=== PATIENT | female | born 2000 | race Caucasian/White ===

== ENCOUNTER 2023-03-19 12:18 | Outpatient (CLI) | payer OTHER | END 2023-03-19 12:38 | disposition home or self-care (01) | LOC: RAD 12:18 | DX: R07.9 Chest pain, unspecified (principal); Z13.1 Encounter for screening for diabetes mellitus; Z13.220 Encounter for screening for lipoid disorders; Z11.9 Encounter for screening for infectious and parasitic diseases, unspecified ==

== ENCOUNTER 2023-05-26 11:40 | Outpatient (CLI) | payer OTHER | END 2023-05-26 11:46 | disposition home or self-care (01) | LOC: SONOGRAMA 11:40 | PROVIDERS: ATTEND Specialist | DX: O26.891 Other specified pregnancy related conditions, first trimester (principal); Z3A.10 10 weeks gestation of pregnancy ==

== ENCOUNTER 2023-05-30 05:53 | Day surgery (SDC) | payer OTHER ==
[2023-05-28 14:24] LABS: HEMATOCRIT 37.7 % (36.0-45.00); HEMOGLOBIN 12.9 g/dL (12.0-15.00); MEAN CELL VOLUME 82.9 fL (80.00-100.00); MEAN CORPUSCULAR HEMOGLOBIN 28.4 pg (27.00-32.0); MEAN CORPUSCULAR HGB CONC 34.3 g/dl (32.0-36.0); PLATELET COUNT 296 K/uL (150-450); RED BLOOD COUNT 4.54 M/uL (4.00-6.00); RED CELL DISTRIBUTION WIDTH 15.3 % (11.5-14.5)
[2023-05-28 14:52] LABS: PH,URINE 6.5 (5.0-8.0); URINE APPEARANCE Clear; URINE BILIRRUBIN Negative (NEGATIVE); URINE BLOOD Negative; URINE COLOR Yellow; URINE GLUCOSE Negative (NEGATIVE); URINE LEUKOCYTE Small; URINE NITRATE Negative; URINE PROTEIN Trace (NEGATIVE)
[2023-05-28 14:55] LABS: URINE BACTERIA 2775.6 uL (0.0-1933); URINE EPITHELIAL CELLS 37.7 uL (0.0-38.8); URINE RBC 14.3 uL (0.0-20.8); URINE WBC 44.6 uL (0.0-23.2)
[2023-05-28 15:13] LABS: INR 1.02; PARTIAL THROMBOPLASTIN TIME 29.3 SECONDS (22.0-34.0); PROTHROMBIN TIME 10.7 SECONDS (9.0-11.5)
[2023-05-30] MEDS ORDERED: CEFAZOLIN SODIUM 1,000 MG VIAL ONE ×2 (07:48→10:49)
[2023-05-30] MEDS ORDERED: POVIDONE-IODINE 118 ML BOTT TOP ONE (10:47)
[2023-05-30] MEDS ORDERED: OXYTOCIN 10 UNITS/ML VIAL ONE (11:42)
== END 2023-05-30 16:30 | disposition home or self-care (01) ==
LOC: CIR.AMB 05:53
PROVIDERS: ATTEND Specialist
DX: O02.1 Missed abortion (principal); O72.2 Delayed and secondary postpartum hemorrhage